=== PATIENT | male | born 1945 | race Caucasian/White ===

== ENCOUNTER 2021-01-24 14:01 | Inpatient (IN) | payer MEDICARE, OTHER ==
[~2021-01-24] VITALS: Ht 177.8 cm; Wt 95.2 kg
[~2021-01-24 14:01] MED LIST: AMOX1TAB64 PO; CEFD300C37 PO; ERGO500017 PO; GABA100C PO; GABA300C PO; HYDR-2214 PO; OXYB5TAB10 PO; SULF-169 PO; TOLT2CAP PO
--- NOTE | 2021-01-24 14:05 | NUR ---
PT BIB EMS FOR WORSEING LEG PAIN. PT STATES CHRONIC LEG PAIN. DENIES INJURY, NO SWELLING OR WOUNDS. STATES HE HASNT BEEN ABLE TO WALK MUCH. ALSO HAD RECENT UTI
--- NOTE | 2021-01-24 14:36 | NUR ---
Note [email or web address] in EDM - 01/24/21 at 1446 by ADRIÁN PT [facility]. PT HAS CO INCREASED WEAKNESS, DIZZINESS AND HYPOTENSTION. RECIEVED FLUIDS AT CENTER. PICC LINE LEFT. RECENT DC [facility]. KRISTOPHER CP, SOB.
[2021-01-24 15:07] LABS: BASOPHILS % (AUTO) 1 % (0-1); EOSINOPHILS % (AUTO) 1 % (1-7); LYMPHOCYTES % (AUTO) 14 % (22-44); MEAN CORPUSCULAR HEMOGLOBIN 29.7 pg (27.5-34.5); MEAN PLATELET VOLUME 6.5 fL (7.4-10.4); MONOCYTES % (AUTO) 12 % (2-9); NEUTROPHILS % (AUTO) 73 % (42-75); PLATELET COUNT 463 x10^3/uL (130-400); RED BLOOD COUNT 4.24 x10^6/uL (4.38-5.82); RED CELL DISTRIBUTION WIDTH 15.7 % (9.4-14.8)
[2021-01-24 15:09] LABS: MD NO
[2021-01-24 15:16] LABS: ALBUMIN 3.2 g/dL (3.4-5.0); ANION GAP 6 mmol/L (5-15); CALCIUM 9.1 mg/dL (8.5-10.1); CHLORIDE 98 mmol/L (98-107)
--- NOTE | 2021-01-24 16:00 | NUR ---
ASSSISTED PT TO BEDSIDE. PT WEAK AND UNSTEADY. URINE IS CLOUDY AND MALORDOROUS
[2021-01-24 16:12] LABS: MICROSCOPIC INDICATED
[2021-01-24] MEDS ORDERED: CEFTRIAXONE PMX 2GM/50ML 50 ML IVPB ONE (17:00)
--- NOTE | 2021-01-24 17:00 | NUR ---
PT RESTING, BED RAILS IN PLACE, CALL LIGHT IN REACH.
--- NOTE | 2021-01-24 17:30 | NUR ---
IV, LABS, BLOOD CULTURES ESTABLISHED. PT TO BE ADMITTED. RESTING. VSS
[2021-01-24] MEDS ORDERED: CEFTRIAXONE PMX 2GM/50ML 50 ML ONE (17:47)
--- NOTE | 2021-01-24 17:52 | NUR ---
ABX ADMIN AFTER BLOOD CULTURES
[2021-01-24] MEDS ORDERED: SODIUM CHLORIDE 0.9% 1,000 ML IV ONE (18:00)
[2021-01-24] MEDS ORDERED: SODIUM CHLORIDE FLUSH 10ML SYR IVF PRN (18:00)
--- NOTE | 2021-01-24 18:23 | NUR ---
REPORT TO TREVA
[2021-01-24 18:59] VITALS: BP_SYST 123; BP_DIAS 81; BP_DIAS 83
[2021-01-24] MEDS ORDERED: BISACODYL 10 MG SUPP PR PRN (20:00)
[2021-01-24] MEDS ORDERED: hydrALAzine 20 MG/ML, 1ML IVPush PRN (20:00)
[2021-01-24] MEDS ORDERED: LABETALOL 5MG/ML, 20ML IVPush PRN (20:00)
[2021-01-24] MEDS ORDERED: POLYETHYLENE GLYCOL 17 GM PACKET PO PRN (20:00)
[2021-01-24 20:02] VITALS: BP 123/81
[2021-01-24] MEDS: IBUPROFEN 600 MG TABLET PO PRN (21:04)
[2021-01-24] MEDS: ENOXAPARIN 40 MG/0.4 ML SQ SCH (21:05)
[2021-01-24] MEDS: MELATONIN 5 MG TABLET PO PRN (21:44)
[2021-01-24] MEDS ORDERED: CEFTRIAXONE PMX 2GM/50ML 50 ML IVPB SCH (22:00)
[2021-01-24] MEDS: ERGOCALCIFEROL 50,000 UNIT CAPSULE PO SCH (22:05)
[2021-01-24 22:59] LABS: ANION GAP 8 mmol/L (5-15); CALCIUM 8.7 mg/dL (8.5-10.1); CHLORIDE 101 mmol/L (98-107); CREATININE 0.72 mg/dL (0.7-1.3)
[2021-01-25 02:13] VITALS: BP 104/68
[2021-01-25 03:40] LABS: ANION GAP 9 mmol/L (5-15); CALCIUM 8.7 mg/dL (8.5-10.1); CHLORIDE 102 mmol/L (98-107); CREATININE 0.77 mg/dL (0.7-1.3)
[2021-01-25 07:15] VITALS: BP 111/74
[2021-01-25 07:34] LABS: BASOPHILS % (AUTO) 1 % (0-1); EOSINOPHILS % (AUTO) 1 % (1-7); LYMPHOCYTES % (AUTO) 8 % (22-44); MEAN CORPUSCULAR HEMOGLOBIN 29.9 pg (27.5-34.5); MEAN CORPUSCULAR HGB CONC 33.3 g/dL (33.2-36.2); MEAN PLATELET VOLUME 6.8 fL (7.4-10.4); MONOCYTES % (AUTO) 13 % (2-9); NEUTROPHILS % (AUTO) 78 % (42-75); PLATELET COUNT 439 x10^3/uL (130-400); RED BLOOD COUNT 4.15 x10^6/uL (4.38-5.82)
[2021-01-25 07:37] LABS: MD NO
[2021-01-25 07:46] LABS: ANION GAP 6 mmol/L (5-15); CALCIUM 8.8 mg/dL (8.5-10.1); CHLORIDE 102 mmol/L (98-107); CREATININE 0.82 mg/dL (0.7-1.3)
[2021-01-25] MEDS: TAMSULOSIN 0.4 MG CAP.ER.24H PO SCH (08:54)
[2021-01-25] MEDS: CIPROFLOXACIN 500 MG TABLET PO SCH ×2 (08:54→20:48)
[2021-01-25] MEDS: SENNA/DOCUSATE TABLET PO SCH (08:59)
[2021-01-25] MEDS: IBUPROFEN 600 MG TABLET PO PRN (09:05)
[2021-01-25] MEDS ORDERED: TAMS-11 PO (13:27)
[2021-01-25] MEDS ORDERED: CIPR500T87 PO ×2 (13:27)
[2021-01-25 14:15] VITALS: BP 95/68
[2021-01-25] MEDS: IBUPROFEN 600 MG TABLET PO SCH ×2 (17:05→22:40)
[2021-01-25 18:59] VITALS: BP 101/78
[2021-01-25] MEDS: CEFTRIAXONE PMX 2GM/50ML 50 ML IVPB SCH ×2 (20:03→20:22)
[2021-01-25] MEDS: ENOXAPARIN 40 MG/0.4 ML SQ SCH (20:48)
[2021-01-25] MEDS: MELATONIN 5 MG TABLET PO PRN (20:48)
[2021-01-26 01:15] VITALS: BP 102/66
[2021-01-26] MEDS: IBUPROFEN 600 MG TABLET PO SCH ×4 (04:18→22:08)
[2021-01-26 07:19] VITALS: BP 113/77
[2021-01-26] MEDS: SENNA/DOCUSATE TABLET PO SCH ×2 (09:00→09:06)
[2021-01-26] MEDS: TAMSULOSIN 0.4 MG CAP.ER.24H PO SCH (09:06)
[2021-01-26] MEDS: CIPROFLOXACIN 500 MG TABLET PO SCH ×2 (09:06→20:36)
[2021-01-26 13:00] VITALS: BP 109/75
[2021-01-26] MEDS: CEFTRIAXONE PMX 2GM/50ML 50 ML IVPB SCH (17:08)
[2021-01-26 19:02] VITALS: BP 123/83
[2021-01-26] MEDS: ACETAMINOPHEN 325 MG TABLET PO PRN (20:36)
[2021-01-26] MEDS: MELATONIN 5 MG TABLET PO PRN (20:37)
[2021-01-26] MEDS: ENOXAPARIN 40 MG/0.4 ML SQ SCH (20:37)
[2021-01-27 00:25] VITALS: BP 115/82
[2021-01-27 05:04] LABS: BASOPHILS % (AUTO) 1 % (0-1); EOSINOPHILS % (AUTO) 2 % (1-7); LYMPHOCYTES % (AUTO) 13 % (22-44); MD NO; MEAN CORPUSCULAR HEMOGLOBIN 29.7 pg (27.5-34.5); MEAN CORPUSCULAR HGB CONC 33.5 g/dL (33.2-36.2); MEAN PLATELET VOLUME 6.4 fL (7.4-10.4); MONOCYTES % (AUTO) 13 % (2-9); NEUTROPHILS % (AUTO) 72 % (42-75); PLATELET COUNT 400 x10^3/uL (130-400); RED BLOOD COUNT 4.04 x10^6/uL (4.38-5.82); RED CELL DISTRIBUTION WIDTH 15.9 % (9.4-14.8)
[2021-01-27] MEDS: IBUPROFEN 600 MG TABLET PO SCH ×4 (05:05→22:11)
[2021-01-27 05:12] LABS: ANION GAP 8 mmol/L (5-15); CALCIUM 9.1 mg/dL (8.5-10.1); CHLORIDE 109 mmol/L (98-107)
[2021-01-27 07:19] VITALS: BP 124/78
[2021-01-27] MEDS: CIPROFLOXACIN 500 MG TABLET PO SCH (08:41)
[2021-01-27] MEDS: TAMSULOSIN 0.4 MG CAP.ER.24H PO SCH (08:41)
[2021-01-27] MEDS: SENNA/DOCUSATE TABLET PO SCH (08:41)
[2021-01-27 14:01] VITALS: BP 113/72
[2021-01-27] MEDS: PIPERACILLIN/TAZO/PMX 4.5GM 100 ML IV SCH (16:02)
[2021-01-27 19:20] VITALS: BP 102/71
[2021-01-27] MEDS: ENOXAPARIN 40 MG/0.4 ML SQ SCH (20:39)
[2021-01-27] MEDS: MELATONIN 5 MG TABLET PO PRN (20:53)
[2021-01-28] MEDS: PIPERACILLIN/TAZO/PMX 4.5GM 100 ML IV SCH ×3 (00:11→15:50)
[2021-01-28 02:54] VITALS: BP 126/77
[2021-01-28] MEDS: IBUPROFEN 600 MG TABLET PO SCH ×4 (03:11→20:55)
[2021-01-28 08:30] VITALS: BP 107/73
[2021-01-28] MEDS: TAMSULOSIN 0.4 MG CAP.ER.24H PO SCH (08:44)
[2021-01-28] MEDS: SENNA/DOCUSATE TABLET PO SCH (08:44)
[2021-01-28] MEDS: LINEZOLID 600 MG TABLET PO SCH ×2 (11:21→20:55)
[2021-01-28 13:52] VITALS: BP 99/68
[2021-01-28 18:17] VITALS: BP 114/75
[2021-01-28] MEDS: MELATONIN 5 MG TABLET PO PRN (20:55)
[2021-01-28] MEDS: ENOXAPARIN 40 MG/0.4 ML SQ SCH (20:56)
[2021-01-29 00:08] VITALS: BP 112/67
[2021-01-29] MEDS: IBUPROFEN 600 MG TABLET PO SCH ×4 (03:06→19:34)
[2021-01-29 07:54] VITALS: BP 126/82
[2021-01-29] MEDS: LINEZOLID 600 MG TABLET PO SCH ×2 (08:05→20:05)
[2021-01-29] MEDS: TAMSULOSIN 0.4 MG CAP.ER.24H PO SCH (08:05)
[2021-01-29] MEDS: SENNA/DOCUSATE TABLET PO SCH (08:07)
[2021-01-29] MEDS: PIPERACILLIN/TAZO/PMX 4.5GM 100 ML IV SCH ×4 (09:06→23:42)
[2021-01-29] MEDS: ERYTHROMYCIN BASE 250 MG TABLET PO SCH ×3 (10:00→18:00)
[2021-01-29] MEDS: NEOMYCIN SULFATE 500 MG TABLET PO SCH ×3 (10:38→18:42)
[2021-01-29 14:59] VITALS: BP 118/76
[2021-01-29] MEDS ORDERED: GOLYTELY 4,000ML ORAL.SOL PO ONE (15:00)
[2021-01-29 19:31] VITALS: BP 114/74
[2021-01-29] MEDS: ENOXAPARIN 40 MG/0.4 ML SQ SCH (19:33)
[2021-01-30] MEDS: IBUPROFEN 600 MG TABLET PO SCH ×4 (00:11→23:47)
[2021-01-30 00:27] VITALS: BP 112/72
[2021-01-30 06:19] LABS: INTERNATIONAL NORMALIZED RATIO 1.02 (0.93-1.1); PROTHROMBIN TIME 10.9 Seconds (9.6-11.5)
[2021-01-30] MEDS ORDERED: MIDAZOLAM 1 MG/ML, 2ML ONE (07:00)
[2021-01-30] MEDS ORDERED: FENTANYL PF 250 MCG/5ML ONE (07:01)
[2021-01-30] MEDS ORDERED: ROCURONIUM 10MG/ML,5ML ONE (07:01)
[2021-01-30] MEDS ORDERED: PROPOFOL 10 MG/ML, 20ML ONE (07:02)
[2021-01-30] MEDS ORDERED: ONDANSETRON 2MG/ML, 2ML ONE (07:21)
[2021-01-30] MEDS ORDERED: PHENYLEPHRINE 10 MG/ML ONE (07:21)
[2021-01-30] MEDS ORDERED: DIPHENHYDRAMINE 50 MG/ML, 1ML ONE (07:21)
[2021-01-30] MEDS ORDERED: SUGAMMADEX 200 MG/2 ML IVPush ONE (07:21)
[2021-01-30] MEDS ORDERED: CEFAZOLIN 1,000 MG ONE (07:21)
[2021-01-30] MEDS: PIPERACILLIN/TAZO/PMX 4.5GM 100 ML IV SCH ×2 (08:03→15:43)
[2021-01-30] MEDS: LINEZOLID 600 MG TABLET PO SCH ×2 (08:46→20:09)
[2021-01-30] MEDS: TAMSULOSIN 0.4 MG CAP.ER.24H PO SCH (08:46)
[2021-01-30] MEDS: SENNA/DOCUSATE TABLET PO SCH (08:46)
[2021-01-30] MEDS ORDERED: FENTANYL PF 100 MCG/2ML ONE (09:30)
[2021-01-30] MEDS ORDERED: OXYcodone 5 MG/5 ML ORAL.SOL UDC ONE (09:30)
[2021-01-30] MEDS: FENTANYL PF 100 MCG/2ML IV PRN ×3 (09:40→09:50)
[2021-01-30] MEDS ORDERED: OXYcodone 5 MG/5 ML ORAL.SOL UDC PO PRN (10:00)
[2021-01-30] MEDS ORDERED: ONDANSETRON 2MG/ML, 2ML IV PRN (12:00)
[2021-01-30] MEDS: POTASSIUM CHLORIDE 20 MEQ in LACTATED RINGERS 1,000 ML IV SCH ×2 (12:20→23:47)
[2021-01-30] MEDS ORDERED: HYDROmorphone 2 MG/ML, 1ML IVPush PRN (12:30)
[2021-01-30 13:15] VITALS: BP 110/73
[2021-01-30] MEDS: morphine SULFATE 10 MG/ML, 1ML IV PRN ×3 (13:36→20:09)
[2021-01-30 20:20] VITALS: BP 74/51
[2021-01-30 23:49] VITALS: BP 98/63
[2021-01-31] MEDS: morphine SULFATE 10 MG/ML, 1ML IV PRN ×7 (00:02→22:57)
[2021-01-31] MEDS: PIPERACILLIN/TAZO/PMX 4.5GM 100 ML IV SCH ×3 (00:10→15:21)
[2021-01-31 03:47] VITALS: BP 84/50
[2021-01-31 05:15] LABS: HCT (SEDRATE) 30.7 % (39.2-51.8)
[2021-01-31] MEDS: IBUPROFEN 600 MG TABLET PO SCH ×3 (05:15→18:36)
[2021-01-31] MEDS: ENOXAPARIN 40 MG/0.4 ML SQ SCH (05:16)
[2021-01-31 05:22] LABS: BASOPHILS % (AUTO) 0 % (0-1); EOSINOPHILS % (AUTO) 1 % (1-7); LYMPHOCYTES % (AUTO) 9 % (22-44); MEAN CORPUSCULAR HEMOGLOBIN 29.7 pg (27.5-34.5); MEAN CORPUSCULAR HGB CONC 33.1 g/dL (33.2-36.2); MONOCYTES % (AUTO) 9 % (2-9); NEUTROPHILS % (AUTO) 81 % (42-75); PLATELET COUNT 249 x10^3/uL (130-400); RED BLOOD COUNT 3.43 x10^6/uL (4.38-5.82); RED CELL DISTRIBUTION WIDTH 15.6 % (9.4-14.8)
[2021-01-31 05:24] LABS: MD NO
[2021-01-31 05:31] LABS: CHLORIDE 113 mmol/L (98-107)
[2021-01-31 05:48] LABS: ALANINE AMINOTRANSFERASE 12 U/L (12-78); ALBUMIN 2.4 g/dL (3.4-5.0); ALKALINE PHOSPHATASE 65 U/L (45-117); ANION GAP 9 mmol/L (5-15); BILIRUBIN,TOTAL 0.3 mg/dL (0.2-1.0); CALCIUM 8.4 mg/dL (8.5-10.1); CREATININE 1.87 mg/dL (0.7-1.3); TOTAL PROTEIN 5.4 g/dL (6.4-8.2)
[2021-01-31] MEDS: POTASSIUM CHLORIDE 20 MEQ in LACTATED RINGERS 1,000 ML IV SCH ×2 (05:59→16:49)
[2021-01-31] MEDS ORDERED: SODIUM CHLORIDE 0.9%, 500ML IVBOLUS ONE (06:00)
[2021-01-31] MEDS ORDERED: LACTATED RINGERS 500 ML IVBOLUS ONE (07:00)
[2021-01-31 07:24] VITALS: BP 88/55
[2021-01-31] MEDS: LINEZOLID 600 MG TABLET PO SCH (07:57)
[2021-01-31] MEDS: SENNA/DOCUSATE TABLET PO SCH (07:57)
[2021-01-31] MEDS: TAMSULOSIN 0.4 MG CAP.ER.24H PO SCH (07:57)
[2021-01-31] MEDS: DAPTOMYCIN 500 MG in SODIUM CHLORIDE 0.9% 100 ML IVPB SCH (11:15)
[2021-01-31] MEDS ORDERED: OXYcodone IR 5MG TABLET PO PRN (12:30)
[2021-01-31 13:24] VITALS: BP 103/66
[2021-01-31 18:25] VITALS: BP 95/51
[2021-01-31] MEDS: ERGOCALCIFEROL 50,000 UNIT CAPSULE PO SCH (20:45)
[2021-02-01] MEDS: morphine SULFATE 10 MG/ML, 1ML IV PRN ×7 (00:12→23:57)
[2021-02-01] MEDS: IBUPROFEN 600 MG TABLET PO SCH ×5 (00:13→23:57)
[2021-02-01] MEDS: PIPERACILLIN/TAZO/PMX 4.5GM 100 ML IV SCH ×4 (00:13→23:57)
[2021-02-01] MEDS: POTASSIUM CHLORIDE 20 MEQ in LACTATED RINGERS 1,000 ML IV SCH ×3 (01:36→19:26)
[2021-02-01 01:47] VITALS: BP 122/68
[2021-02-01 05:50] LABS: BASOPHILS % (AUTO) 1 % (0-1); EOSINOPHILS % (AUTO) 2 % (1-7); LYMPHOCYTES % (AUTO) 9 % (22-44); MEAN CORPUSCULAR HEMOGLOBIN 29.4 pg (27.5-34.5); MEAN PLATELET VOLUME 6.9 fL (7.4-10.4); MONOCYTES % (AUTO) 9 % (2-9); NEUTROPHILS % (AUTO) 80 % (42-75); PLATELET COUNT 212 x10^3/uL (130-400); RED BLOOD COUNT 3.21 x10^6/uL (4.38-5.82); RED CELL DISTRIBUTION WIDTH 15.5 % (9.4-14.8)
[2021-02-01 05:51] LABS: MD NO
[2021-02-01 06:06] LABS: ANION GAP 7 mmol/L (5-15); CALCIUM 8.2 mg/dL (8.5-10.1); CHLORIDE 114 mmol/L (98-107); CREATININE 1.53 mg/dL (0.7-1.3)
[2021-02-01 06:09] LABS: CREATINE KINASE, TOTAL 78 U/L (39-308)
[2021-02-01] MEDS: ENOXAPARIN 40 MG/0.4 ML SQ SCH (06:12)
[2021-02-01 07:30] VITALS: BP 116/72
[2021-02-01] MEDS ORDERED: POTASSIUM CHLORIDE 20 MEQ TAB.ER.PRT PO ONE (08:00)
[2021-02-01] MEDS: SENNA/DOCUSATE TABLET PO SCH ×2 (08:09→08:13)
[2021-02-01] MEDS: TAMSULOSIN 0.4 MG CAP.ER.24H PO SCH (08:10)
[2021-02-01] MEDS: DAPTOMYCIN 500 MG in SODIUM CHLORIDE 0.9% 100 ML IVPB SCH (10:08)
[2021-02-01 13:38] VITALS: BP 139/81
[2021-02-01 18:54] VITALS: BP 127/77
[2021-02-02 01:57] VITALS: BP 117/73
[2021-02-02] MEDS: POTASSIUM CHLORIDE 20 MEQ in LACTATED RINGERS 1,000 ML IV SCH ×3 (04:56→20:35)
[2021-02-02 05:58] LABS: BASOPHILS % (AUTO) 1 % (0-1); EOSINOPHILS % (AUTO) 4 % (1-7); LYMPHOCYTES % (AUTO) 10 % (22-44); MEAN CORPUSCULAR HEMOGLOBIN 29.7 pg (27.5-34.5); MEAN PLATELET VOLUME 7.3 fL (7.4-10.4); MONOCYTES % (AUTO) 8 % (2-9); NEUTROPHILS % (AUTO) 77 % (42-75); PLATELET COUNT 214 x10^3/uL (130-400); RED BLOOD COUNT 3.24 x10^6/uL (4.38-5.82); RED CELL DISTRIBUTION WIDTH 15.7 % (9.4-14.8)
[2021-02-02] MEDS: IBUPROFEN 600 MG TABLET PO SCH ×3 (06:01→17:37)
[2021-02-02 06:02] LABS: MD NO
[2021-02-02] MEDS: morphine SULFATE 10 MG/ML, 1ML IV PRN (06:02)
[2021-02-02 06:03] LABS: ANION GAP 10 mmol/L (5-15); CALCIUM 8.6 mg/dL (8.5-10.1); CHLORIDE 113 mmol/L (98-107); CREATININE 1.36 mg/dL (0.7-1.3)
[2021-02-02] MEDS: ENOXAPARIN 40 MG/0.4 ML SQ SCH (06:04)
[2021-02-02 06:05] LABS: CREATINE KINASE, TOTAL 58 U/L (39-308)
[2021-02-02 07:44] VITALS: BP 130/74
[2021-02-02] MEDS: PIPERACILLIN/TAZO/PMX 4.5GM 100 ML IV SCH ×2 (08:10→17:05)
[2021-02-02] MEDS: TAMSULOSIN 0.4 MG CAP.ER.24H PO SCH (08:11)
[2021-02-02] MEDS: SENNA/DOCUSATE TABLET PO SCH (08:11)
[2021-02-02] MEDS: DAPTOMYCIN 500 MG in SODIUM CHLORIDE 0.9% 100 ML IVPB SCH (09:34)
[2021-02-02] MEDS: ACETAMINOPHEN 325 MG TABLET PO PRN (09:54)
[2021-02-02] MEDS ORDERED: morphine SULFATE 10 MG/ML, 1ML IV PRN (10:16)
[2021-02-02] MEDS ORDERED: POTASSIUM CHLORIDE 20 MEQ TAB.ER.PRT PO ONE (12:00)
[2021-02-02 14:01] VITALS: BP 129/76
[2021-02-02] MEDS: ACETAMINOPHEN 325 MG TABLET PO SCH ×2 (14:43→20:12)
[2021-02-02 18:59] VITALS: BP 147/91
[2021-02-03] MEDS: ACETAMINOPHEN 325 MG TABLET PO SCH ×3 (00:31→07:47)
[2021-02-03] MEDS: PIPERACILLIN/TAZO/PMX 4.5GM 100 ML IV SCH ×3 (00:31→16:08)
[2021-02-03] MEDS: IBUPROFEN 600 MG TABLET PO SCH ×4 (00:32→18:01)
[2021-02-03 01:03] VITALS: BP 154/91
[2021-02-03] MEDS: POTASSIUM CHLORIDE 20 MEQ in LACTATED RINGERS 1,000 ML IV SCH ×2 (03:59→11:17)
[2021-02-03 05:58] LABS: BASOPHILS % (AUTO) 1 % (0-1); EOSINOPHILS % (AUTO) 7 % (1-7); LYMPHOCYTES % (AUTO) 13 % (22-44); MEAN CORPUSCULAR HEMOGLOBIN 29.8 pg (27.5-34.5); MEAN CORPUSCULAR HGB CONC 33.1 g/dL (33.2-36.2); MEAN PLATELET VOLUME 7.4 fL (7.4-10.4); MONOCYTES % (AUTO) 9 % (2-9); NEUTROPHILS % (AUTO) 70 % (42-75); PLATELET COUNT 208 x10^3/uL (130-400); RED BLOOD COUNT 3.16 x10^6/uL (4.38-5.82); RED CELL DISTRIBUTION WIDTH 15.2 % (9.4-14.8)
[2021-02-03 06:02] LABS: MD NO
[2021-02-03 06:03] LABS: ANION GAP 6 mmol/L (5-15); CALCIUM 8.5 mg/dL (8.5-10.1); CHLORIDE 112 mmol/L (98-107)
[2021-02-03] MEDS: ENOXAPARIN 40 MG/0.4 ML SQ SCH (06:26)
[2021-02-03 07:16] VITALS: BP 152/86
[2021-02-03] MEDS: TAMSULOSIN 0.4 MG CAP.ER.24H PO SCH (07:48)
[2021-02-03] MEDS: SENNA/DOCUSATE TABLET PO SCH (07:54)
[2021-02-03] MEDS ORDERED: ACETAMINOPHEN 325 MG TABLET PO PRN (08:00)
[2021-02-03] MEDS: DAPTOMYCIN 500 MG in SODIUM CHLORIDE 0.9% 100 ML IVPB SCH (10:42)
[2021-02-03] MEDS ORDERED: POTASSIUM CHLORIDE 20 MEQ in LACTATED RINGERS 1,000 ML IV SCH (12:00)
[2021-02-03 13:23] VITALS: BP 122/72
[2021-02-03 19:49] VITALS: BP 138/85
[2021-02-04] MEDS: PIPERACILLIN/TAZO/PMX 4.5GM 100 ML IV SCH ×3 (00:48→16:31)
[2021-02-04] MEDS: IBUPROFEN 600 MG TABLET PO SCH ×4 (00:48→18:04)
[2021-02-04 01:12] VITALS: BP 144/88
[2021-02-04 05:37] LABS: CHLORIDE 110 mmol/L (98-107)
[2021-02-04 05:52] LABS: ANION GAP 6 mmol/L (5-15); CALCIUM 8.6 mg/dL (8.5-10.1)
[2021-02-04] MEDS: ENOXAPARIN 40 MG/0.4 ML SQ SCH (06:38)
[2021-02-04 07:11] VITALS: BP 146/89
[2021-02-04] MEDS: TAMSULOSIN 0.4 MG CAP.ER.24H PO SCH (08:02)
[2021-02-04] MEDS: SENNA/DOCUSATE TABLET PO SCH (08:02)
[2021-02-04] MEDS: DAPTOMYCIN 500 MG in SODIUM CHLORIDE 0.9% 100 ML IVPB SCH (09:45)
[2021-02-04] MEDS ORDERED: PIPE4.5F2 IV (10:24)
[2021-02-04] MEDS ORDERED: DAPT500V3 IV (10:24)
[2021-02-04 12:56] VITALS: BP 133/76
[2021-02-04 20:33] VITALS: BP 152/89
[2021-02-05] MEDS: IBUPROFEN 600 MG TABLET PO SCH ×2 (00:09→06:11)
[2021-02-05] MEDS: PIPERACILLIN/TAZO/PMX 4.5GM 100 ML IV SCH ×2 (00:09→08:06)
[2021-02-05 02:44] VITALS: BP 125/75
[2021-02-05] MEDS: ENOXAPARIN 40 MG/0.4 ML SQ SCH (06:11)
[2021-02-05 07:33] VITALS: BP 150/76
[2021-02-05] MEDS: TAMSULOSIN 0.4 MG CAP.ER.24H PO SCH (08:06)
[2021-02-05] MEDS: SENNA/DOCUSATE TABLET PO SCH (08:06)
[2021-02-05] MEDS: DAPTOMYCIN 500 MG in SODIUM CHLORIDE 0.9% 100 ML IVPB SCH (10:00)
[2021-02-05 10:05] VITALS: BP 122/67
== END 2021-02-05 11:12 | DRG 654 ==
LOC: ED 17:00 → EDIP 17:56 → ED 18:47 → 4NW 18:55 → 4NE 01-30 09:38
PROVIDERS: ADMIT Emergency Medicine; ATTEND Emergency Medicine
PROC: 0TQB0ZZ Repair Bladder, Open Approach (ICD-10-PCS; 2021-01-30)
PROC: 0D1N0Z4 Bypass Sigmoid Colon to Cutaneous, Open Approach (ICD-10-PCS; principal; 2021-01-30 07:30)
PROC: 02HV33Z Insertion of Infusion Device into Superior Vena Cava, Percutaneous Approach (ICD-10-PCS; 2021-02-01)
PROC: B548ZZA Ultrasonography of Superior Vena Cava, Guidance (ICD-10-PCS; 2021-02-01)
DX: N32.1 Vesicointestinal fistula (principal); N30.00 Acute cystitis without hematuria; E87.1 Hypo-osmolality and hyponatremia; K57.92 Diverticulitis of intestine, part unspecified, without perforation or abscess without bleeding; S32.039A Unspecified fracture of third lumbar vertebra, initial encounter for closed fracture; N17.9 Acute kidney failure, unspecified; R78.81 Bacteremia; Z66 Do not resuscitate; B96.1 Klebsiella pneumoniae [K. pneumoniae] as the cause of diseases classified elsewhere; D63.8 Anemia in other chronic diseases classified elsewhere; G62.9 Polyneuropathy, unspecified; G89.4 Chronic pain syndrome; Z20.822 Contact with and (suspected) exposure to COVID-19; I10 Essential (primary) hypertension; J44.9 Chronic obstructive pulmonary disease, unspecified; K74.60 Unspecified cirrhosis of liver; K76.0 Fatty (change of) liver, not elsewhere classified; N28.1 Cyst of kidney, acquired; N40.0 Benign prostatic hyperplasia without lower urinary tract symptoms; I95.9 Hypotension, unspecified; R53.81 Other malaise; D72.829 Elevated white blood cell count, unspecified; Z82.5 Family history of asthma and other chronic lower respiratory diseases; Z87.440 Personal history of urinary (tract) infections; B95.5 Unspecified streptococcus as the cause of diseases classified elsewhere
CPT/HCPCS: 36415; 36573; 74177; 80048; 80053; 81001; 82040; 82550; 83605; 83735; 84100; 84145; 85025; 85610; 85651; 85730; 86140; 87040; 87077; 87086; 87186; 87635; 88307; 93005; 96365; G0378; J0690; J0696; J0878; J1650; J2250; J2405; J2543; J2704; J3010; J3480; J7120; C1751; J1200; J2270; J2370; J7030; J7040